=== PATIENT | male | born 1950 | race Caucasian/White ===

== ENCOUNTER 2016-05-10 12:32 | Outpatient (RCR) | payer MEDICARE, OTHER ==
[~2016-05-10 12:32] MED LIST: ALPR0.25 PO; ASA 81 MG; ASP325T PO; ASPI-983 PO; ATEN50TA PO; ATN25T; ATOR10TA66 PO; ATOR40TA; B CO1CAP PO; B12; CHOL100011 PO; CHOL20003 PO; CLPD75T PO; CYAN100021; CYAN25003 SL; CYCL10TA9 PO; CYCL5TAB PO; EZET10TA23 PO; FLC1T PO; FOLI0.4T2 PO; GLIM4TAB PO; GLYB5TAB6; JANUMET 50/1000; LIRA0.6P SQ; LISI20TA PO; LSNP10T; MAGNESIUM W/ZINC PO; METF-380 PO; METF1000 PO; METFORMIN 1000; MULT1TAB34 PO; NITR0.4T SL; OMEG-109 PO; OMEG-9 PO; OMG1KC; PANT20TA; PGLT30T; RANI-351 PO; RANI-425 PO; TRAM50TA2 PO; VITA150T PO; VITAMIN B12 SL; [UNRECOGNIZED DRUG - OTHER]; [UNRECOGNIZED DRUG - OTHER]
== END 2016-07-20 | disposition home or self-care (01) ==
LOC: CR 12:32
PROVIDERS: ATTEND Internal Medicine Cardiovascular Disease
DX: Z95.5 Presence of coronary angioplasty implant and graft (principal); I25.2 Old myocardial infarction
CPT/HCPCS: 93798

== ENCOUNTER → 2017-08-17 | Outpatient (RCR) | payer MEDICARE, OTHER ==
[~2017-08-17] MED LIST changes: +CANA300T PO; +ISOS30TA3 PO; -METF1000 PO; +METF10002 PO
== END | disposition home or self-care (01) ==
LOC: CR3 07-18 06:00
PROVIDERS: ATTEND Internal Medicine Cardiovascular Disease
DX: Z29.8 Encounter for other specified prophylactic measures (principal)

== ENCOUNTER 2017-09-07 06:44 | Outpatient (RCR) | payer MEDICARE, OTHER | END 2017-09-17 | disposition home or self-care (01) | LOC: CR3 06:44 | PROVIDERS: ATTEND Internal Medicine Cardiovascular Disease | DX: Z29.8 Encounter for other specified prophylactic measures (principal) ==

== ENCOUNTER 2017-10-21 06:26 | Outpatient (RCR) | payer MEDICARE, OTHER | END 2017-10-23 | disposition home or self-care (01) | LOC: CR3 06:26 | PROVIDERS: ATTEND Internal Medicine Cardiovascular Disease | DX: Z29.8 Encounter for other specified prophylactic measures (principal) ==

== ENCOUNTER → 2017-11-23 | Outpatient (RCR) | payer MEDICARE, OTHER | END | disposition home or self-care (01) | LOC: CR3 10-24 07:00 | PROVIDERS: ATTEND Internal Medicine Cardiovascular Disease | DX: Z29.8 Encounter for other specified prophylactic measures (principal) ==

== ENCOUNTER 2017-12-23 06:30 | Outpatient (RCR) | payer MEDICARE, OTHER ==
[~2017-12-23 06:30] MED LIST changes: +METF-399 PO; -METF10002 PO
== END 2017-12-25 | disposition home or self-care (01) ==
LOC: CR3 06:30
PROVIDERS: ATTEND Internal Medicine Cardiovascular Disease
DX: Z29.8 Encounter for other specified prophylactic measures (principal)

== ENCOUNTER → 2018-01-25 | Outpatient (RCR) | payer MEDICARE, OTHER | END | disposition home or self-care (01) | LOC: CR3 12-26 06:00 | PROVIDERS: ATTEND Internal Medicine Cardiovascular Disease | DX: Z29.8 Encounter for other specified prophylactic measures (principal) ==

== ENCOUNTER 2018-02-24 06:23 | Outpatient (RCR) | payer MEDICARE, OTHER ==
[~2018-02-24 06:23] MED LIST changes: -RANI-425 PO; +RANI-591 PO
== END 2018-02-25 | disposition home or self-care (01) ==
LOC: CR3 06:23
PROVIDERS: ATTEND Internal Medicine Cardiovascular Disease
DX: Z29.8 Encounter for other specified prophylactic measures (principal)

== ENCOUNTER 2018-03-27 06:15 | Outpatient (RCR) | payer MEDICARE, OTHER | END 2018-03-29 | disposition home or self-care (01) | LOC: CR3 06:15 | PROVIDERS: ATTEND Internal Medicine Cardiovascular Disease | DX: Z29.8 Encounter for other specified prophylactic measures (principal) ==

== ENCOUNTER 2018-04-28 07:01 | Outpatient (RCR) | payer MEDICARE, OTHER | END 2018-04-30 | disposition home or self-care (01) | LOC: CR3 07:01 | PROVIDERS: ATTEND Internal Medicine Cardiovascular Disease | DX: Z29.8 Encounter for other specified prophylactic measures (principal) ==

== ENCOUNTER → 2018-05-31 | Outpatient (RCR) | payer MEDICARE, OTHER | END | disposition home or self-care (01) | LOC: CR3 05-01 06:00 | PROVIDERS: ATTEND Internal Medicine Cardiovascular Disease | DX: Z29.8 Encounter for other specified prophylactic measures (principal) ==

== ENCOUNTER → 2018-07-05 | Outpatient (RCR) | payer MEDICARE, OTHER | END | disposition home or self-care (01) | LOC: CR3 06-05 06:00 | PROVIDERS: ATTEND Internal Medicine Cardiovascular Disease | DX: Z29.8 Encounter for other specified prophylactic measures (principal) ==

== ENCOUNTER 2018-07-31 06:16 | Outpatient (RCR) | payer MEDICARE, OTHER | END 2018-08-06 | disposition home or self-care (01) | LOC: CR3 06:16 | PROVIDERS: ATTEND Internal Medicine Cardiovascular Disease | DX: Z29.8 Encounter for other specified prophylactic measures (principal) ==

== ENCOUNTER → 2018-09-06 | Outpatient (RCR) | payer MEDICARE, OTHER | END | disposition home or self-care (01) | LOC: CR3 08-07 06:00 | PROVIDERS: ATTEND Internal Medicine Cardiovascular Disease | DX: Z29.8 Encounter for other specified prophylactic measures (principal) ==

== ENCOUNTER → 2018-10-20 | Outpatient (RCR) | payer MEDICARE, OTHER | END | disposition home or self-care (01) | LOC: CR3 09-20 06:00 | PROVIDERS: ATTEND Internal Medicine Cardiovascular Disease | DX: Z29.8 Encounter for other specified prophylactic measures (principal) ==

== ENCOUNTER → 2018-11-22 | Outpatient (RCR) | payer MEDICARE, OTHER | END | disposition home or self-care (01) | LOC: CR3 10-23 06:00 | PROVIDERS: ATTEND Internal Medicine Cardiovascular Disease | DX: Z01.818 Encounter for other preprocedural examination (principal) ==

== ENCOUNTER 2018-12-15 06:35 | Outpatient (RCR) | payer MEDICARE, OTHER | END 2018-12-24 | disposition home or self-care (01) | LOC: CR3 06:35 | PROVIDERS: ATTEND Internal Medicine Cardiovascular Disease | DX: Z29.8 Encounter for other specified prophylactic measures (principal) ==

== ENCOUNTER 2019-01-22 06:16 | Outpatient (RCR) | payer MEDICARE, OTHER | END 2019-01-24 | disposition home or self-care (01) | LOC: CR3 06:16 | PROVIDERS: ATTEND Internal Medicine Cardiovascular Disease | DX: Z29.8 Encounter for other specified prophylactic measures (principal) ==

== ENCOUNTER → 2019-01-29 | Outpatient (CLI) | payer MEDICARE, OTHER | LOC: CARD 13:44 | PROVIDERS: ATTEND Physician Assistant | DX: I07.1 Rheumatic tricuspid insufficiency (principal); I10 Essential (primary) hypertension; E10.9 Type 1 diabetes mellitus without complications; G47.33 Obstructive sleep apnea (adult) (pediatric); I65.29 Occlusion and stenosis of unspecified carotid artery | CPT/HCPCS: 93306 ==

== ENCOUNTER → 2019-02-28 | Outpatient (RCR) | payer MEDICARE, OTHER | END | disposition home or self-care (01) | LOC: CR3 01-29 06:00 | PROVIDERS: ATTEND Internal Medicine Cardiovascular Disease | DX: Z29.8 Encounter for other specified prophylactic measures (principal) ==

== ENCOUNTER → 2019-04-04 | Outpatient (RCR) | payer MEDICARE, OTHER | END | disposition home or self-care (01) | LOC: CR3 03-05 06:00 | PROVIDERS: ATTEND Internal Medicine Cardiovascular Disease | DX: Z29.8 Encounter for other specified prophylactic measures (principal) ==

== ENCOUNTER 2019-05-04 06:14 | Outpatient (RCR) | payer MEDICARE, OTHER ==
[~2019-05-04 06:14] MED LIST changes: -RANI-591 PO; +RANI-603 PO; -TRAM50TA2 PO; +TRM50T PO
== END 2019-05-06 | disposition home or self-care (01) ==
LOC: CR3 06:14
PROVIDERS: ATTEND Internal Medicine Cardiovascular Disease
DX: Z29.8 Encounter for other specified prophylactic measures (principal)

== ENCOUNTER 2019-06-06 06:25 | Outpatient (RCR) | payer MEDICARE, OTHER | END 2019-06-08 | disposition home or self-care (01) | LOC: CR3 06:25 | PROVIDERS: ATTEND Internal Medicine Cardiovascular Disease | DX: Z29.8 Encounter for other specified prophylactic measures (principal) ==

== ENCOUNTER 2019-06-29 06:09 | Outpatient (RCR) | payer MEDICARE, OTHER | END 2019-07-11 | disposition home or self-care (01) | LOC: CR3 06:09 | PROVIDERS: ATTEND Internal Medicine Cardiovascular Disease | DX: Z29.8 Encounter for other specified prophylactic measures (principal) ==

== ENCOUNTER → 2020-06-13 | Outpatient (CLI) | payer MEDICARE, OTHER ==
[~2020-06-13] MED LIST changes: +ASPI-1238 PO; -ASPI-983 PO; -ISOS30TA3 PO; +ISOS30TA82 PO
== END ==
LOC: CARD 13:38
PROVIDERS: ATTEND Physician Assistant
DX: I10 Essential (primary) hypertension (principal); I34.0 Nonrheumatic mitral (valve) insufficiency
CPT/HCPCS: 93306

== ENCOUNTER → 2020-07-30 | Outpatient (RCR) | payer MEDICARE, OTHER ==
[~2020-07-30] MED LIST changes: -FOLI0.4T2 PO; +FOLI0.4T6 PO
== END | disposition home or self-care (01) ==
LOC: CR3 06-30 05:43
PROVIDERS: ATTEND Internal Medicine Cardiovascular Disease
DX: Z29.8 Encounter for other specified prophylactic measures (principal)

== ENCOUNTER 2020-08-28 06:00 | Outpatient (RCR) | payer MEDICARE, OTHER | END 2020-08-31 | disposition home or self-care (01) | LOC: CR3 06:00 | PROVIDERS: ATTEND Internal Medicine Cardiovascular Disease | DX: Z29.8 Encounter for other specified prophylactic measures (principal) ==

== ENCOUNTER 2020-09-01 06:29 | Outpatient (RCR) | payer MEDICARE, OTHER | END 2020-10-01 | disposition home or self-care (01) | LOC: CR3 06:29 | PROVIDERS: ATTEND Internal Medicine Cardiovascular Disease | DX: Z29.8 Encounter for other specified prophylactic measures (principal) ==

== ENCOUNTER 2020-09-22 12:07 | Emergency (ER) | payer MEDICARE, OTHER ==
[~2020-09-22] VITALS: Ht 177.8 cm; Wt 77.6 kg
[2020-09-22 12:25] VITALS: BP 146/127
--- NOTE | 2020-09-22 12:47 | ED General ---
General Chief Complaint: Trauma-Non Activation Stated Complaint: LUMP ON LEFT SIDE/ FELL Nursing Triage Note: LUMP TO LEFT CHEST AFTER A FALL X2 WEEKS AGO Nursing Sepsis Screen: No Definite Risk History of Present Illness Date Seen by Provider: Sep 22, 2020 Time Seen by Provider: 12:30 Initial Comments Patient is a 70-year-old male who presents to the emergency department today with a chief complaint of a concern for a "lump" just above and lateral to the left nipple. Patient states that he fell approximately a week and a half ago and he is not sure what he hit his chest on. He is anticoagulated on Plavix with a history of coronary artery disease. Patient states that he just lost his balance and fell. He has significant bruising to the left lateral chest wall. He states he noticed this lump which is nontender and became concerned that he might have a blood clot or some other significant pathology. Patient denies any recent illnesses such as fevers, chills, cough congestion. No shortness of breath. No other abdominal or chest complaints. All other review of systems reviewed and negative except as stated above. Timing/Duration: 1 Week Severity: Moderate Associated Systoms: Denies Symptoms Allergies and Home Medications Allergies Coded Allergies: No Known Drug Allergies (Verified , 03/24/07) Home Medications Alprazolam 0.25 Mg Tablet, 0.25 MG PO DAILY, (Reported) Aspirin 81 Mg Tablet.dr, 81 MG PO DAILY Prescribed by: JUANCARLOS MOSER on 11/20/15 0759 Atenolol 50 Mg Tablet, 50 MG PO DAILY, (Reported) Atorvastatin Calcium 10 Mg Tablet, 10 MG PO Q48H @ HS, (Reported) Canagliflozin 300 Mg Tablet, 300 MG PO DAILY, (Reported) Cholecalciferol (Vitamin D3) 2,000 Unit Capsule, 2,000 UNIT PO DAILY, (Reported) Clopidogrel 75 Mg Tablet, 75 MG PO HS, (Reported) Cyanocobalamin (Vitamin B-12) 2,500 Mcg Tab.subl, 2,500 MCG SL HS, (Reported) Ezetimibe 10 Mg Tablet, 10 MG PO HS, (Reported) Folic Acid 0.4 Mg Tablet, 0.4 MG PO DAILY, (Reported) Isosorbide Mononitrate 30 Mg Tab.er.24h, 30 MG PO DAILY, (Reported) Liraglutide 0.6 Mg/0.1 Ml Pen.injctr, 1.8 MG SQ HS, (Reported) Lisinopril 20 Mg Tablet, 20 MG PO DAILY, (Reported) Multivits,Stress Formula 1 Tab Tablet, 1 TAB PO DAILY, (Reported) Nitroglycerin 0.4 Mg Tab.subl, 0.4 MG SL UD, (Reported) 1 TAB SL EVERY 5 MINUTES NOT TO EXCEED 3 DOSES IN 15 MINUTES NEEDED [place]-3 Fatty Acids/Fish Oil 1 Each Capsule, 1,200 MG PO BID, (Reported) Ranitidine HCl 75 Mg Tablet, 75 MG PO DAILY, (Reported) Vitamin B Complex & Vit C No.4 150 Mg Tablet, 150 MG PO DAILY, (Reported) [Magnesium W/Zinc] , 1 TAB PO DAILY, (Reported) Patient Home Medication List Home Medication List Reviewed: Yes Review of Systems Review of Systems Constitutional: see HPI EENTM: no symptoms reported Respiratory: no symptoms reported, other (Lump to left breast area) Cardiovascular: no symptoms reported Gastrointestinal: no symptoms reported Genitourinary: no symptoms reported Musculoskeletal: no symptoms reported Skin: change in color (Bruising to the left chest wall) All Other Systems Reviewed Negative Unless Noted: Yes Past Ffdxwdm-Zpwcds-Oktmbi Hx Patient Social History Alcohol Use: Occasionally Uses Smoking Status: Never a Smoker 2nd Hand Smoke Exposure: No Recent Infectious Disease Expo: No Recent Hopitalizations: Yes Immunizations Up To Date Tetanus Booster (TDap): Unknown Date of Pneumonia Vaccine: Feb 02, 2017 Date of Influenza Vaccine: Feb 02, 2017 Past Medical History Surgeries: Yes CABG, Gallbladder Respiratory: Yes Sleep Apnea Cardiac: Yes Coronary Artery Disease, Heart Attack, High Cholesterol Neurological: No Reproductive Disorders: No Sexually Transmitted Disease: No Gastrointestinal: No Gall Bladder Disease Musculoskeletal: Yes (FIBROMYALGIA) Endocrine: Yes Diabetes, Non-Insulin dep Skin Psychosocial: No Blood Disorders: No Family Medical History No Pertinent Family Hx Physical Exam Vital Signs Vital Signs - First Documented 09/22/20 12:25 Temp 36.8 Pulse 92 Resp 17 B/P (MAP) 146/127 (133) O2 Delivery Room Air Capillary Refill : Less Than 3 Seconds Height, Weight, BMI Height: 5'10.00" Weight: 199lbs. 0.0oz. 90.605248lq; 24.00 BMI Method:Stated General Appearance: No Apparent Distress, WD/WN Eyes: Bilateral Eye Normal Inspection, Bilateral Eye PERRL, Bilateral Eye EOMI Neck: Normal Inspection Respiratory: Lungs Clear, Normal Breath Sounds, No Accessory Muscle Use, No Respiratory Distress Cardiovascular: Regular Rate, Rhythm Gastrointestinal: Non Tender, Soft Extremity: Normal Range of Motion Neurologic/Psychiatric: Alert, Oriented x3, No Motor/Sensory Deficits, Normal Mood/Affect, data abstractor II-XII Norm as Tested Skin: Normal Color, Warm/Dry, Other (Significant ecchymosis noted to the left b reast/lateral chest wall. Patient has a palpable hematoma approximately 3 x 3 cm just superior and lateral to the left nipple. There is no overlying erythema, drainage. It is mostly nontender. Bedside ultrasound was used to evaluate this and confirm that this is indeed hematoma in the subcutaneous tissues.) Progress/Results/Core Measures Suspected Sepsis Recent Fever Within 48 Hours: No Infection Criteria Present: None New/Unexplained Altered Menta: No Sepsis Screen: No Definite Risk SIRS Temperature: Pulse: 92 Respiratory Rate: 17 Blood Pressure 146 /127 Mean: 133 Results/Orders Vital Signs/I&O 09/22/20 12:25 Temp 36.8 Pulse 92 Resp 17 B/P (MAP) 146/127 (133) O2 Delivery Room Air Capillary Refill : Less Than 3 Seconds Blood Pressure Mean: 133 Progress Note : Time: 12:44 Progress Note 70-year-old male presents with a chief complaint of a "lump" to the left breast area. Evaluation today includes a physical exam. Patient is noted to have significant ecchymosis over the left breast/lateral chest wall. No open wounds are noted. He has a 3 x 3 cm mobile nontender hematoma in the left breast tissue. Patient is advised to apply warm compresses. Warm showers. I suspect that it will take a couple of weeks for this hematoma to breakdown. I have cautioned him to watch for overlying signs of cellulitis. I have encouraged him to follow-up with his primary care physician in the next week or 2. He verbalized understanding. All questions are sought and answered. Patient is stable for discharge. Departure Impression Primary Impression: Posttraumatic hematoma of left breast Qualified Codes: S20.02XA - Contusion of left breast, initial encounter Disposition: 01 HOME, SELF-CARE Condition: Stable Departure-Patient Inst. Decision time for Depature: 12:46 Referrals: JOVANNA PADILLA DO (PCP/Family) Primary Care Physician Patient Instructions: HEMATOMA Add. Discharge Instructions: You can apply warm compresses to the area to help the hematoma resorb into the body. Keep an eye on this area to evaluate for redness, further skin changes to suggest infection. Please call and follow-up with your primary care physician in the next week to 2 weeks to ensure that this hematoma is resolving. Return to the emergency room for any new, concerning or emergent complaints. DUANE ALFORD MD Sep 22, 2020 12:47
== END 2020-09-22 12:55 | disposition home or self-care (01) ==
LOC: EDUNIT# 12:07 → ER 12:10
DX: S20.02XA Contusion of left breast, initial encounter (principal); I25.2 Old myocardial infarction; E11.9 Type 2 diabetes mellitus without complications; E78.00 Pure hypercholesterolemia, unspecified; Z79.82 Long term (current) use of aspirin; Z79.899 Other long term (current) drug therapy; W01.0XXA Fall on same level from slipping, tripping and stumbling without subsequent striking against object, initial encounter

== ENCOUNTER 2021-06-01 06:38 | Outpatient (RCR) | payer MEDICARE, OTHER ==
[~2021-06-01 06:38] MED LIST changes: +CYCL10TA25 PO; -CYCL10TA9 PO
[2021-06-17] MEDS ORDERED: MAGN400T39 PO (09:51)
[2021-06-17] MEDS ORDERED: FAMO20TA3 PO (09:51)
[2021-06-17] MEDS ORDERED: METF-399 PO (09:51)
[2021-06-17] MEDS ORDERED: CLOP75TA28 PO (09:51)
[2021-06-17] MEDS ORDERED: ATEN25TA PO (09:51)
[2021-06-17] MEDS ORDERED: CHOL200025 PO (09:51)
[2021-06-17] MEDS ORDERED: MELA1TAB20 PO (09:51)
[2021-06-17] MEDS ORDERED: LISI20TA26 PO (09:51)
[2021-06-17] MEDS ORDERED: FOLI1TAB33 PO (09:51)
[2021-06-17] MEDS ORDERED: ACET-2267 PO (09:51)
[2021-06-17] MEDS ORDERED: FISH1CAP15 PO (09:51)
[2021-06-17] MEDS ORDERED: ATOR20TA66 PO (09:51)
[2021-06-17] MEDS ORDERED: VITA-189 PO (09:51)
[2021-06-17] MEDS ORDERED: DIPH25CA79 PO (09:51)
[2021-06-17] MEDS ORDERED: EZET10TA49 PO (09:51)
[2021-06-17] MEDS ORDERED: ISOS30TA82 PO (09:51)
[2021-06-17] MEDS ORDERED: ASPI-1238 PO (09:51)
[2021-06-17] MEDS ORDERED: LIRA0.6P3 SQ (09:51)
[2021-06-17] MEDS ORDERED: MULT-1136 PO (09:51)
[2021-06-17] MEDS ORDERED: GABA-486 PO (09:51)
[2021-06-17] MEDS ORDERED: DAPA1TAB5 PO (09:55)
== END 2021-06-17 | disposition home or self-care (01) ==
LOC: CR3 06:38
PROVIDERS: ATTEND Internal Medicine Cardiovascular Disease
DX: Z29.8 Encounter for other specified prophylactic measures (principal)

== ENCOUNTER 2021-06-17 11:00 | Day surgery (SDC) | payer MEDICARE, OTHER ==
[~2021-06-17] VITALS: Ht 177.8 cm; Wt 81.5 kg
[2021-06-17] VITALS (11 sets, daily range): BP systolic 93–144; BP diastolic 51–77
[2021-06-17 09:26] LABS: WHITE BLOOD COUNT 6.5 10^3/uL (4.3-11.0)
[2021-06-17 09:43] LABS: INR 0.9 (0.8-1.4); PROTHROMBIN TIME PATIENT 12.7 SEC (12.2-14.7)
[2021-06-17 09:48] LABS: ALBUMIN 4.5 GM/DL (3.2-4.5); BILIRUBIN,TOTAL 0.5 MG/DL (0.1-1.0); CALCIUM 8.8 MG/DL (8.5-10.1); CREATININE SERUM 1.16 MG/DL (0.60-1.30); POTASSIUM 4.9 MMOL/L (3.6-5.0); TOTAL PROTEIN 7.4 GM/DL (6.4-8.2)
--- NOTE | 2021-06-17 09:57 | Diagnostic Imaging Report ---
INDICATION: Chest pain. EXAMINATION: Chest on 06/17/2021. COMPARISON: 02/23/2017. FINDINGS: There are sternotomy wires and mediastinal clips. The heart and pulmonary vasculature are normal. The lungs and pleural spaces are clear. No pneumothorax or effusions. IMPRESSION: No acute cardiopulmonary process. Dictated by: Dictated on workstation # [id number]
[~2021-06-17 11:00] MED LIST changes: +ACET-2267 PO; +ATEN25TA PO; +ATOR20TA66 PO; +CHOL200025 PO; +CLOP75TA28 PO; +DAPA1TAB5 PO; +DIPH25CA79 PO; +EZET10TA49 PO; +FAMO20TA3 PO; +FISH1CAP15 PO; +FOLI1TAB33 PO; +GABA-486 PO; +HEParin (CATH LAB) 2,000 ML IV ONE; +LIDOCAINE 1% INJ 50 ML (XYLOCAINE) VIAL ONE; +LIRA0.6P3 SQ; +LISI20TA26 PO; +MAGN400T39 PO; +MELA1TAB20 PO; +MULT-1136 PO; +NS IV 1000 ML 1,000 ML IV SCH; +NS IV 1000 ML 1,000 ML ONE; +VITA-189 PO
[2021-06-17] MEDS ORDERED: MIDAZOLAM 5 MG/5 ML (VERSED) VIAL ONE (11:42)
[2021-06-17] MEDS ORDERED: fentaNYL INJ 100 MCG/2 ML AMP ONE (11:42)
--- NOTE | 2021-06-17 11:54 | Conscious Sedation/ASA ---
Conscious Sedation Pre-Proced Time 11:54 ASA Score 3 For ASA 3 and 4: Consider anesthesia and medical clearance. Also, for patients with a history of failed moderate sedation consider anesthesia. Airway Lungs Heart ASA score ASA 1: a normal healthy patient ASA 2: a patient with a mild systemic disease (mid diabetes, controlled hypertension, obesity x ASA 3: a patient with a severe systemic disease that limits activity (angina, COPD, prior Myocardial infarction) ASA 4: a patient with an incapacitating disease that is a constant threat to life (CHF, renal failure) ASA 5: a moribund patient not expected to survive 24 hrs. (ruptured aneurysm) ASA 6: a declared brain- patient whose organs are being harvested. For emergent operations, add the letter E after the classification Mallampati Classification Grade 3 Sedation Plan Analgesia, Amnesia, Plan communicated to team members, Discussed options with patient/fam, Discussed risks with patient/fam The patient is an appropriate candidate to undergo the planned procedure, sedation, and anesthesia. The patient immediately re-assessed prior to indication. JUANCARLOS MOSER MD Jun 17, 2021 11:54
--- NOTE | 2021-06-17 12:17 | Discharge Inst-Post CATH ---
Discharge Inst-CATH/EP Problems Reviewed?: Yes Post Cardiac Cath/EP D/C Inst Follow Up/Plan Appointment with Dr. Parker's office in 2 to 4 weeks <b>CARDIAC CATH/EP PROCEDURE DISCHARGE INSTRUCTIONS</b> ACTIVITY * Go Home directly and rest. * Limit activity of the leg (or wrist if it was used) for 7 days including aer obics, swimming, jogging, bicycling, etc. * Restrict stair-climbing for 7 days if possible, if not, climb up with your non-cath leg, then bring together on the same step. * Avoid lifting, pushing, pulling or excessive movement of the affected extremi ty for 7 days. * Customary sexual activity may be resumed after 2 days-use caution not to use a position that strains or causes pain to the affected extremity. * No driving for 24 hours. * NO SMOKING. * Avoid straining for bowel movements for 7 days. * Gentle walking on level ground is allowed. * Returning to work will depend on the type of procedure and the results. Your doctor will discuss this with you. CALL YOUR DOCTOR FOR ANY OF THE FOLLOWING: *If bleeding from the puncture site occurs- Apply gentle pressure to site with clean cloth and call your doctor or EMS. * If a knot or lump forms under the skin, increases in size, or causes pain. * If bruising appears to be worsening or moving further down your leg instead of disappearing. * Temperature above 101 F. CARE OF YOUR GROIN INCISION; * Bruising or purple discoloration of the skin near the puncture site is common. * You may shower only, no bathtub bathing for 5 days. Be careful to avoid slipping as your leg may feel stiff. * If a closure device was used on your femoral artery, please see the attached guide regarding care of the device and your leg. * Leave dressing on FOR 24 hours. CARE OF YOUR WRIST INCISION; * Bruising or purple discoloration of the skin near the puncture site is common. * You may shower. * DO NOT submerge wrist. * Leave dressing on FOR 24 hours. JUANCARLOS PARKER MD Jun 17, 2021 12:17
--- NOTE | 2021-06-17 12:22 | Cardiac Cath Report ---
Cardiac Cath Report Physician (s)/Manager Provider Relations (s) Physician JUANCARLOS MOSER MD Pre-Procedure Diagnosis Pre-Procedure Diagnosis: Coronary artery disease Post-Procedure Note Procedure Start Date: Jun 17, 2021 Name of Procedure: Left heart catheterization Vein graft angiogram MCELROY angiogram Findings/Procedure Note PROCEDURE NOTE: 71-year-old gentleman with history of coronary artery disease, CABG, has been having recurrent chest pain, has baseline abnormal stress test, decided to proceed with coronary angiogram. After explaining the procedure to the patient, all pros and cons were explained, all questions were answered. The patient signed the consent and then he was placed on the cardiac catheterization laboratory. Groin was prepped SL fashion local anesthesia was used. Sheath placed in the right femoral artery. Sheri right and left catheter were used to access the coronary system.Vein Graft evaluated. MCELROY evaluated. Pigtail was used to access the left ventricular cavity. Left ventriculogram was not done, pressure was measured Aortic arch angiogram was not done At the end of the procedure the sheath was removed. Closure device was used FINDINGS: Hemodynamics LV 109/14, end-diastolic pressure 14 Aorta 104/50 mean of 73 ANATOMY: Left Main is occluded Left Anterior Descending is occluded proximally, MCELROY to LAD is patent with excellent flow distally, small vessel disease distally Left Circumflex is occluded proximally, the vein graft to the first obtuse marginal branch is patent and filling through collaterals the second obtuse marginal branch. Originally that vein graft was a jump graft the second arm of the jump graft is occluded Right Coronary Artery is occluded proximally with patent vein graft to the right coronary artery with small vessel disease distally MCELROY to LAD is patent Vein Graft evaluation Vein graft to the right coronary artery is patent with good flow distally, small vessel disease distally Vein graft jump graft to OM1, OM 2 has the first portion to OM1 is patent with excellent flow distally, the second portion to OM 2 is occluded, OM 2 is receiving collaterals from OM1 LV Gram was not done, pressure was measured CONCLUSION: 1. Patent MCELROY to LAD, vein graft to right coronary artery and vein graft to OM1 with occluded vein graft to OM2 filling OM2 through collaterals from OM1. 2. Severe huslia coronary artery disease corrected by the bypass surgery 3. Mildly elevated left ventricular end-diastolic pressure DISCUSSION AND RECOMMENDATION: Maximize medical therapy, no intervention is warranted Anesthesia Type: Conscious Sedation Estimated blood loss (mL): 15 ml Contrast Amount: 43 ml Total Radiation Dose: 437 mGy Post-Procedure Diagnosis Post-operative diagnosis: Chest pain Coronary artery disease Hypertension Hyperlipidemia JUANCARLOS MOSER MD Jun 17, 2021 12:22
[2021-06-17] MEDS ORDERED: NS IV 1000 ML 1,000 ML IV SCH (12:30)
[2021-06-17] MEDS ORDERED: PATIENT MAY USE OWN MEDS, ALL PO SCH (12:30)
== END 2021-06-17 17:05 ==
LOC: CATH 11:00 → SDC 12:53 → CATH 17:05
PROVIDERS: ATTEND Internal Medicine Cardiovascular Disease
DX: I25.10 Atherosclerotic heart disease of native coronary artery without angina pectoris (principal); I10 Essential (primary) hypertension; E55.9 Vitamin D deficiency, unspecified; E11.9 Type 2 diabetes mellitus without complications; I65.23 Occlusion and stenosis of bilateral carotid arteries; I83.93 Asymptomatic varicose veins of bilateral lower extremities; E78.2 Mixed hyperlipidemia; Z95.1 Presence of aortocoronary bypass graft; Z79.82 Long term (current) use of aspirin; Z79.899 Other long term (current) drug therapy; Z79.02 Long term (current) use of antithrombotics/antiplatelets
CPT/HCPCS: 71045; 80053; 80061; 85027; 85610; 85730; 87081; 93459; C1894; 36415

== ENCOUNTER 2021-11-11 06:09 | Outpatient (RCR) | payer MEDICARE, OTHER ==
[~2021-11-11 06:09] MED LIST changes: -HEParin (CATH LAB) 2,000 ML IV ONE; -LIDOCAINE 1% INJ 50 ML (XYLOCAINE) VIAL ONE; -NS IV 1000 ML 1,000 ML IV SCH; -NS IV 1000 ML 1,000 ML ONE
== END 2021-11-14 | disposition home or self-care (01) ==
LOC: CR3 06:09
PROVIDERS: ATTEND Internal Medicine Cardiovascular Disease
DX: Z29.8 Encounter for other specified prophylactic measures (principal)

== ENCOUNTER 2022-01-11 06:13 | Outpatient (RCR) | payer MEDICARE, OTHER | END 2022-01-15 | disposition home or self-care (01) | LOC: CR3 06:13 | PROVIDERS: ATTEND Internal Medicine Cardiovascular Disease | DX: Z29.8 Encounter for other specified prophylactic measures (principal) ==

== ENCOUNTER → 2022-02-11 | Outpatient (CLI) | payer MEDICARE, OTHER | LOC: CARD 10:00 | PROVIDERS: ATTEND Internal Medicine Cardiovascular Disease | DX: I34.0 Nonrheumatic mitral (valve) insufficiency (principal); I10 Essential (primary) hypertension | CPT/HCPCS: 93306 ==

== ENCOUNTER 2022-03-15 06:32 | Outpatient (RCR) | payer MEDICARE, OTHER | END 2022-03-17 | disposition home or self-care (01) | LOC: CR3 06:32 | PROVIDERS: ATTEND Internal Medicine Cardiovascular Disease | DX: Z29.8 Encounter for other specified prophylactic measures (principal) ==

== ENCOUNTER 2022-05-14 06:09 | Outpatient (RCR) | payer MEDICARE, OTHER | END 2022-05-17 | disposition home or self-care (01) | LOC: CR3 06:09 | PROVIDERS: ATTEND Internal Medicine Cardiovascular Disease | DX: Z29.8 Encounter for other specified prophylactic measures (principal) ==

== ENCOUNTER 2022-06-02 06:22 | Outpatient (RCR) | payer MEDICARE, OTHER ==
[~2022-06-02 06:22] MED LIST changes: -MELA1TAB20 PO; +MELA1TAB72 PO
== END 2022-07-15 | disposition home or self-care (01) ==
LOC: CR3 06:22
PROVIDERS: ATTEND Internal Medicine Cardiovascular Disease
DX: Z29.8 Encounter for other specified prophylactic measures (principal)

== ENCOUNTER 2022-09-08 06:33 | Outpatient (RCR) | payer MEDICARE, OTHER | END 2022-09-14 | disposition home or self-care (01) | LOC: CR3 06:33 | PROVIDERS: ATTEND Internal Medicine Cardiovascular Disease | DX: Z29.8 Encounter for other specified prophylactic measures (principal) ==

== ENCOUNTER 2022-11-05 07:32 | Outpatient (RCR) | payer MEDICARE, OTHER | END 2022-11-14 | disposition home or self-care (01) | LOC: CR3 07:32 | PROVIDERS: ATTEND Internal Medicine Cardiovascular Disease | DX: Z29.8 Encounter for other specified prophylactic measures (principal) ==

== ENCOUNTER 2022-11-15 06:28 | Outpatient (RCR) | payer MEDICARE, OTHER | END 2022-12-15 | disposition home or self-care (01) | LOC: CR3 06:28 | PROVIDERS: ATTEND Internal Medicine Cardiovascular Disease | DX: Z29.8 Encounter for other specified prophylactic measures (principal) ==